=== PATIENT | male | born 1970 | race Hispanic/Latino ===

== ENCOUNTER 2018-02-24 16:57 | Inpatient (IN) | payer BC ==
[~2018-02-24] VITALS: Ht 165.1 cm; Wt 78.4 kg
[2018-02-24] MEDS ORDERED: MORPHINE SULFATE 2 MG/ML 1ML SYG ONE (19:29)
[2018-02-24] MEDS ORDERED: MORPHINE SULFATE 2 MG/ML 1ML SYG IVP PRN (20:00)
[2018-02-24 21:03] VITALS: BP 158/94
[2018-02-24] MEDS ORDERED: ENOXAPARIN SODIUM 40 MG/0.4 ML SYRINGE SQ SCH (21:30)
[2018-02-24] MEDS ORDERED: MORPHINE SULFATE 4 MG/1ML SYG ONE (22:54)
[2018-02-24 23:00] VITALS: BP 137/87
[2018-02-24] MEDS: ZOSYN 3.375GM+NS 50ML 50 ML IV SCH (23:01)
[2018-02-24] MEDS ORDERED: ESOM40CA54 PO (23:25)
[2018-02-24] MEDS ORDERED: OLME20TA10 PO (23:25)
[2018-02-25 03:00] VITALS: BP 137/82
[2018-02-25] MEDS: MORPHINE SULFATE 4 MG/1ML SYG IV PRN ×3 (04:23→17:18)
[2018-02-25] MEDS: ZOSYN 3.375GM+NS 50ML 50 ML IV SCH ×3 (05:28→20:56)
[2018-02-25 08:00] VITALS: BP 127/84
[2018-02-25] MEDS: LOSARTAN 100 MG TABLET PO SCH (09:30)
[2018-02-25] MEDS: PANTOPRAZOLE SODIUM 40 MG TABLET.DR PO SCH (09:31)
[2018-02-25 11:28] LABS: HEMATOCRIT 34.1 % (42-54); MEAN CORPUSCULAR HEMOGLOBIN 29.5 pg (27.0-33.0); MEAN CORPUSCULAR HGB CONC 33.5 g/dL (32.0-36.0); MEAN CORPUSCULAR VOLUME 88.2 fL (79-99); PLATELET COUNT (AUTO) 325 K/uL (130-400); RED BLOOD CELL COUNT(AUTO) 3.86 MIL/uL (4.50-6.20); RED CELL DISTRIBUTION WIDTH 13.8 % (11.0-15.5)
[2018-02-25 11:38] LABS: ALBUMIN 2.5 g/dL (3.5-5.0); MAGNESIUM 2.3 mg/dL (1.80-2.40); POTASSIUM 4.1 mmol/L (3.5-5.1); TOTAL PROTEIN, SERUM 8.1 g/dL (6.0-8.3)
[2018-02-25 12:00] VITALS: BP 126/80
[2018-02-25] MEDS ORDERED: LACTATED RINGERS 1000ML 1,000 ML IV SCH (13:15)
[2018-02-25 16:00] VITALS: BP 146/92
[2018-02-25 20:00] VITALS: BP 140/89
[2018-02-25] MEDS ORDERED: LACTULOSE 20 GM/30 ML UDCUP PO PRN (20:30)
[2018-02-26] VITALS (13 sets, daily range): BP systolic 112–156; BP diastolic 68–97
[2018-02-26 04:30] LABS: BASOPHILS % (AUTO) 0.4 % (0.0-5.0); EOSINOPHILS % (AUTO) 0.5 % (0.0-8.0); HEMATOCRIT 33.6 % (42-54); LYMPHOCYTES % (AUTO) 13.3 % (21.0-51.0); MEAN CORPUSCULAR HEMOGLOBIN 29.2 pg (27.0-33.0); MEAN CORPUSCULAR HGB CONC 33.5 g/dL (32.0-36.0); MEAN CORPUSCULAR VOLUME 87.1 fL (79-99); MONOCYTES % (AUTO) 10.3 % (3.0-13.0); NEUTROPHILS % (AUTO) 75.5 % (40.0-77.0); NUCLEATED RED BLOOD CELLS 0.1 % (0.0-0.19); PLATELET COUNT (AUTO) 322 K/uL (130-400); RED BLOOD CELL COUNT(AUTO) 3.86 MIL/uL (4.50-6.20); RED CELL DISTRIBUTION WIDTH 13.5 % (11.0-15.5); WHITE BLOOD COUNT (AUTO) 11.5 K/uL (4.8-10.8)
[2018-02-26 04:39] LABS: INR 0.97 (0.85-1.15); PARTIAL THROMBOPLASTIN TIME 29.4 SEC (26.3-35.5); PROTHROMBIN TIME 10.2 SEC (9.6-11.6)
[2018-02-26 04:50] LABS: ALBUMIN 2.4 g/dL (3.5-5.0); BILIRUBIN,TOTAL 0.7 mg/dL (0.2-1.0); CREATININE 0.9 mg/dL (0.5-1.5); TOTAL PROTEIN, SERUM 8.1 g/dL (6.0-8.3)
[2018-02-26] MEDS: ZOSYN 3.375GM+NS 50ML 50 ML IV SCH ×3 (05:20→20:36)
[2018-02-26] MEDS: MORPHINE SULFATE 4 MG/1ML SYG IV PRN ×3 (05:27→20:41)
[2018-02-26] MEDS: PANTOPRAZOLE SODIUM 40 MG TABLET.DR PO SCH (09:00)
[2018-02-26] MEDS: LOSARTAN 100 MG TABLET PO SCH (09:10)
[2018-02-26] MEDS: FAMOTIDINE/PF 20 MG/2 ML VIAL IV SCH (10:15)
[2018-02-26] MEDS ORDERED: FAMOTIDINE/PF 20 MG/2 ML VIAL IV ONE (10:15)
[2018-02-26] MEDS ORDERED: MIDAZOLAM HCL 1 MG/ML 2ML VIAL ONE (13:19)
[2018-02-26] MEDS ORDERED: FENTANYL CITRATE PF 50 MCG/1 ML 2ML VIAL ONE (13:19)
[2018-02-27] MEDS: MORPHINE SULFATE 4 MG/1ML SYG IV PRN (03:28)
[2018-02-27 03:35] VITALS: BP 132/85
[2018-02-27] MEDS: ZOSYN 3.375GM+NS 50ML 50 ML IV SCH ×2 (05:16→14:00)
[2018-02-27 06:37] LABS: HEMATOCRIT 33.9 % (42-54); MEAN CORPUSCULAR HEMOGLOBIN 29.2 pg (27.0-33.0); MEAN CORPUSCULAR HGB CONC 33.5 g/dL (32.0-36.0); PLATELET COUNT (AUTO) 343 K/uL (130-400); RED BLOOD CELL COUNT(AUTO) 3.89 MIL/uL (4.50-6.20); RED CELL DISTRIBUTION WIDTH 13.7 % (11.0-15.5); WHITE BLOOD COUNT (AUTO) 9.9 K/uL (4.8-10.8)
[2018-02-27 06:43] LABS: POTASSIUM 4.1 mmol/L (3.5-5.1)
[2018-02-27 07:00] VITALS: BP 155/98
[2018-02-27] MEDS ORDERED: ENOXAPARIN SODIUM 40 MG/0.4 ML SYRINGE SQ ONE (09:59)
[2018-02-27] MEDS: LOSARTAN 100 MG TABLET PO SCH (10:17)
[2018-02-27] MEDS: FAMOTIDINE/PF 20 MG/2 ML VIAL IV SCH (10:17)
[2018-02-27 11:00] VITALS: BP 126/83
[2018-02-27 15:00] VITALS: BP 128/93
[2018-02-27] MEDS ORDERED: TRAM50TA2 PO (15:40)
== END 2018-02-27 16:50 | disposition home or self-care (01) | DRG 436 ==
LOC: EDH 16:57 → EDHIP 19:00 → 3AH 20:27
PROVIDERS: ADMIT Family Medicine; ATTEND Family Medicine
PROC: 0FB13ZX Excision of Right Lobe Liver, Percutaneous Approach, Diagnostic (ICD-10-PCS; principal; 2018-02-26)
DX: C78.7 Secondary malignant neoplasm of liver and intrahepatic bile duct (principal); C18.9 Malignant neoplasm of colon, unspecified; E44.1 Mild protein-calorie malnutrition; K76.9 Liver disease, unspecified; R16.0 Hepatomegaly, not elsewhere classified; F10.10 Alcohol abuse, uncomplicated; I10 Essential (primary) hypertension; D72.829 Elevated white blood cell count, unspecified; D64.9 Anemia, unspecified; R74.8 Abnormal levels of other serum enzymes; Z80.3 Family history of malignant neoplasm of breast; Z68.28 Body mass index [BMI] 28.0-28.9, adult; Z80.9 Family history of malignant neoplasm, unspecified; Z82.49 Family history of ischemic heart disease and other diseases of the circulatory system
CPT/HCPCS: 36415; 47000; 71260; 80048; 80053; 82105; 82378; 83735; 85025; 85027; 85610; 85730; 87040; J1650; J2250; J2270; J2543; J3010; J3490; J7120

== ENCOUNTER 2018-08-31 01:14 | Emergency (ER) | payer BC ==
[~2018-08-31 01:14] MED LIST: ESOM40CA54 PO; HYDR-4457 PO; OLME20TA10 PO; ONDA8TAB8 PO
[2018-08-31] MEDS ORDERED: ASPIRIN 325 MG TABLET ONE (01:45)
[2018-08-31 01:58] LABS: BASOPHILS % (AUTO) 0.5 % (0.0-5.0); EOSINOPHILS % (AUTO) 1.4 % (0.0-8.0); HEMATOCRIT 39.8 % (42-54); LYMPHOCYTES % (AUTO) 27.2 % (21.0-51.0); MEAN CORPUSCULAR HEMOGLOBIN 29.5 pg (27.0-33.0); MEAN CORPUSCULAR HGB CONC 32.9 g/dL (32.0-36.0); MEAN CORPUSCULAR VOLUME 89.7 fL (79-99); MONOCYTES % (AUTO) 13.9 % (3.0-13.0); NUCLEATED RED BLOOD CELLS 0.1 % (0.0-0.19); PLATELET COUNT (AUTO) 117 K/uL (130-400); RED BLOOD CELL COUNT(AUTO) 4.44 MIL/uL (4.50-6.20); RED CELL DISTRIBUTION WIDTH 17.4 % (11.0-15.5); WHITE BLOOD COUNT (AUTO) 6.1 K/uL (4.8-10.8)
[2018-08-31 02:14] LABS: CREATININE 0.9 mg/dL (0.5-1.5); POTASSIUM 3.6 mmol/L (3.5-5.1)
[2018-08-31 02:19] LABS: ALBUMIN 3.6 g/dL (3.5-5.0); BILIRUBIN,TOTAL 0.6 mg/dL (0.2-1.0); TOTAL PROTEIN, SERUM 8.3 g/dL (6.0-8.3)
[2018-08-31 02:22] LABS: B-TYPE NATRIURETIC PEPTIDE 12 pg/mL (0-100)
[2018-08-31] MEDS ORDERED: LABETALOL 20 MG/4 ML DISP.SYRIN IV ONE (02:29)
[2018-08-31] MEDS ORDERED: SODIUM CHLORIDE 0.9% 50 ML IV ONE (02:31)
== END 2018-08-31 03:17 | disposition home or self-care (01) ==
LOC: EDH 01:14
DX: I10 Essential (primary) hypertension (principal); R07.89 Other chest pain; Z85.038 Personal history of other malignant neoplasm of large intestine; Z85.05 Personal history of malignant neoplasm of liver
CPT/HCPCS: 36415; 71045; 80053; 82550; 83880; 84484; 85025; 93005; 96374

== ENCOUNTER 2018-12-19 02:53 | Observation (INO) | payer BC ==
[~2018-12-19] VITALS: Ht 165.1 cm; Wt 88.9 kg
[2018-12-19] MEDS ORDERED: ONDANSETRON HCL 4 MG/2 ML VIAL ONE (03:42)
[2018-12-19] MEDS ORDERED: MORPHINE SULFATE 5 MG/ML VIAL ONE (03:43)
[2018-12-19] MEDS ORDERED: ACETAMINOPHEN EXTRA STRENGTH 500 MG TABLET ONE (03:44)
[2018-12-19 03:46] LABS: BASOPHILS % (AUTO) 0.2 % (0.0-5.0); EOSINOPHILS % (AUTO) 0.2 % (0.0-8.0); HEMATOCRIT 37.1 % (42-54); LYMPHOCYTES % (AUTO) 8.8 % (21.0-51.0); MEAN CORPUSCULAR HEMOGLOBIN 29.6 pg (27.0-33.0); MEAN CORPUSCULAR HGB CONC 33.2 g/dL (32.0-36.0); MEAN CORPUSCULAR VOLUME 89.4 fL (79-99); MONOCYTES % (AUTO) 5.5 % (3.0-13.0); NEUTROPHILS % (AUTO) 85.3 % (40.0-77.0); NUCLEATED RED BLOOD CELLS 0.1 % (0.0-0.19); PLATELET COUNT (AUTO) 139 K/uL (130-400); RED BLOOD CELL COUNT(AUTO) 4.15 MIL/uL (4.50-6.20); RED CELL DISTRIBUTION WIDTH 16.8 % (11.0-15.5); WHITE BLOOD COUNT (AUTO) 3.7 K/uL (4.8-10.8)
[2018-12-19 03:55] LABS: CARBON DIOXIDE 23 mmol/L (21-32); CHLORIDE 100 mmol/L (101-111); GLOMERULAR FILTR. RATE CALC 85 mL/min (>60); GLUCOSE,RANDOM 134 mg/dL (70-105); POTASSIUM 3.4 mmol/L (3.5-5.1); SODIUM SERUM 136 mmol/L (136-145); UREA NITROGEN, BLOOD 21 mg/dL (7-18)
[2018-12-19 04:03] LABS: INR 0.96 (0.85-1.15); PARTIAL THROMBOPLASTIN TIME 27.1 SEC (26.3-35.5); PROTHROMBIN TIME 10.1 SEC (9.6-11.6)
[2018-12-19 04:07] LABS: ALANINE AMINOTRANSFERASE 58 U/L (12-78); ALBUMIN 3.5 g/dL (3.5-5.0); ASPARTATE AMINOTRANSFERASE 43 U/L (10-37); BILIRUBIN,TOTAL 0.8 mg/dL (0.2-1.0); CREATINE KINASE, TOTAL 52 U/L (21-232); MYOGLOBIN 31 ng/mL (10-92); TOTAL PROTEIN, SERUM 8.2 g/dL (6.0-8.3); TROPONIN I < 0.04 ng/mL (0.00-0.06)
[2018-12-19] MEDS ORDERED: LEVOFLOXACIN 750 MG/D5W 150 ML 150 ML ONE (04:57)
[2018-12-19] MEDS ORDERED: POTASSIUM CHLORIDE 20 MEQ ERTAB PO ONE (06:10)
[2018-12-19] MEDS ORDERED: MAGNESIUM 2GM PREMIX 50ML 50 ML IV ONE (06:37)
--- NOTE | 2018-12-19 07:23 | NUR ---
ER ADMIT PATIENT RECEIVED FROM ER VIA WHEELCHAIR. HE IS AWAKE, ALERT AND ORIENTED X3. FAMILY IS PRESENT IN ROOM. ALL HAVE BEEN ORIENTED TO ROOM AND USE OF CALL LIGHT. NO C/O PAIN OR DISCOMFORT REPORTED. BED IS IN LOWEST POSITION AND LOCKED WITH PERSONAL ITEMS WITHIN REACH. IV TO THE LEFT FOREARM IS PATENT WITH NO REDNESS OR SWELLING NOTED TO SITE. WILL CONTINUE TO MONITOR.
[2018-12-19 07:30] VITALS: BP 141/61
[2018-12-19] MEDS ORDERED: ACET-2123 PO (07:46)
[2018-12-19] MEDS ORDERED: CAND32TA9 PO (07:46)
[2018-12-19] MEDS ORDERED: METO-408 PO (07:46)
[2018-12-19] MEDS ORDERED: CYCL10TA7 PO (07:46)
[2018-12-19] MEDS ORDERED: CELE-84 PO (07:46)
[2018-12-19] MEDS ORDERED: AMLO5TAB9 PO (07:46)
[2018-12-19] MEDS ORDERED: IBUP-2353 PO (07:46)
[2018-12-19] MEDS ORDERED: ONDANSETRON ODT 4 MG TAB PO PRN (08:00)
[2018-12-19] MEDS ORDERED: POTASSIUM CHLORIDE 20 MEQ ERTAB PO PRN (08:00)
[2018-12-19] MEDS ORDERED: CYCLOBENZAPRINE HCL 10 MG TABLET PO PRN (08:00)
[2018-12-19] MEDS ORDERED: IBUPROFEN 200 MG TAB PO PRN (08:00)
[2018-12-19] MEDS ORDERED: POTASSIUM CHLORIDE 20MEQ/100ML 100 ML IV PRN (08:00)
[2018-12-19] MEDS ORDERED: CELECOXIB 200 MG CAP PO PRN (08:00)
[2018-12-19] MEDS: METOPROLOL SUCCINATE 25 MG PO SCH ×2 (08:00→20:09)
[2018-12-19] MEDS ORDERED: POTASSIUM CHLORIDE 10% ELIXIR 20 MEQ/15 ML UDCUP PO PRN (08:00)
[2018-12-19] MEDS: LOSARTAN 100 MG TABLET PO SCH (08:00)
[2018-12-19] MEDS ORDERED: ACETAMINOPHEN EXTRA STRENGTH 500 MG TABLET PO PRN (08:00)
[2018-12-19] MEDS ORDERED: HYDROCODONE/ACETAMINOPHEN 5/325 MG TAB PO PRN (08:00)
[2018-12-19] MEDS ORDERED: LIDOCAINE HCL-MPF 1% 2ML VIAL IVP PRN (08:00)
[2018-12-19] MEDS: AMLODIPINE BESYLATE 5 MG TAB PO SCH (08:00)
[2018-12-19] MEDS: PANTOPRAZOLE SODIUM 40 MG TABLET.DR PO SCH (08:11)
[2018-12-19] MEDS: 1/2 NORMAL SALINE 1,000 ML IV SCH ×2 (08:11→20:08)
[2018-12-19] MEDS: ENOXAPARIN SODIUM 30 MG/0.3 ML SQ SCH (08:12)
[2018-12-19] MEDS ORDERED: ACETAMINOPHEN 325 MG TAB PO PRN (08:15)
[2018-12-19 11:00] VITALS: BP 110/79
--- NOTE | 2018-12-19 11:11 | NUR ---
DCP CM met with pt discussed dc plans. Pt is independent prior to admission, lives at home with spouse. Denies any equipments/services. Pt feels safe to go back home, still drives and works, spouse able to assist with transportation and needs as necessary. DC plan to home once stable. CM to cont to follow up. Addendum: 12/19/18 at 1112 by EMEKA MONTEZ LVN CM Amended: Links added.
[2018-12-19 16:00] VITALS: BP 126/78
[2018-12-19 19:35] VITALS: BP 123/84
[2018-12-19 23:53] VITALS: BP 116/75
[2018-12-20 04:17] VITALS: BP 124/79
[2018-12-20 07:00] VITALS: BP 126/80
[2018-12-20] MEDS: PANTOPRAZOLE SODIUM 40 MG TABLET.DR PO SCH (07:38)
--- NOTE | 2018-12-20 07:38 | NUR ---
DR. RONDA BOND IN TO SEE PATIENT. NEW ORDERS RECEIVED.
[2018-12-20] MEDS: LOSARTAN 100 MG TABLET PO SCH (08:03)
[2018-12-20] MEDS: AMLODIPINE BESYLATE 5 MG TAB PO SCH (08:03)
[2018-12-20] MEDS: ENOXAPARIN SODIUM 30 MG/0.3 ML SQ SCH (08:03)
[2018-12-20] MEDS: METOPROLOL SUCCINATE 25 MG PO SCH (08:03)
[2018-12-20 08:09] LABS: BASOPHILS % (AUTO) 0.2 % (0.0-5.0); EOSINOPHILS % (AUTO) 2.1 % (0.0-8.0); HEMATOCRIT 34.5 % (42-54); LYMPHOCYTES % (AUTO) 26.7 % (21.0-51.0); MEAN CORPUSCULAR HEMOGLOBIN 30.7 pg (27.0-33.0); MEAN CORPUSCULAR HGB CONC 33.9 g/dL (32.0-36.0); MEAN CORPUSCULAR VOLUME 90.6 fL (79-99); PLATELET COUNT (AUTO) 94 K/uL (130-400); RED CELL DISTRIBUTION WIDTH 16.7 % (11.0-15.5); WHITE BLOOD COUNT (AUTO) 2.6 K/uL (4.8-10.8)
[2018-12-20 08:33] LABS: CREATININE 0.9 mg/dL (0.5-1.5)
[2018-12-20 08:47] LABS: BAND NEUTROPHILS % (MANUAL) 2 % (0-2); EOSINOPHILS % (MANUAL) 3 % (1-6); LYMPHOCYTES % (MANUAL) 28 % (22-44); MAN.DIFF COMMENT-IMPRESSION MANUAL DIFFERENTIAL; MONOCYTES % (MANUAL) 8 % (2-9); SEGMENTED NEUTROPHILS % 59 % (40-70)
[2018-12-20 08:50] LABS: PLATELET MORPHOLOGY COMMENT SLIGHTLY DECREASED
[2018-12-20] MEDS ORDERED: LEVOFLOXACIN 500 MG/D5W 100 ML 100 ML IV SCH (09:00)
[2018-12-20 11:22] VITALS: BP 132/76
--- NOTE | 2018-12-20 15:25 | NUR ---
DISCHARGE INSTRUCTIONS DISCUSSED DISCHARGE INSTRUCTION WITH PT AND FAMILY, STATES HAS BOTH APPTS. SET FOR NEXT WEEK.
--- NOTE | 2018-12-20 15:30 | NUR ---
DISCHARGE PT DISCHARGED HOME, NO DISTRESS NOTED.
== END 2018-12-20 15:28 | disposition home or self-care (01) ==
LOC: EDH 02:53 → EDHIP 05:14 → 4AH 06:23
PROVIDERS: ADMIT Internal Medicine; ATTEND Internal Medicine
DX: R50.9 Fever, unspecified (principal); C18.9 Malignant neoplasm of colon, unspecified; C78.7 Secondary malignant neoplasm of liver and intrahepatic bile duct; D70.9 Neutropenia, unspecified; E86.0 Dehydration; I10 Essential (primary) hypertension; Z85.038 Personal history of other malignant neoplasm of large intestine; Z92.21 Personal history of antineoplastic chemotherapy
CPT/HCPCS: 36415 ×2; 71045; 80048; 80053; 82550; 83605 ×2; 83630; 83735; 83874; 84484; 85025 ×2; 85610; 85730; 87040 ×2; 87046; 87177; 87324; 93005; 96361 ×2; 96365; 96372; 99291; G0378 ×34; J1650; J1956 ×2; J2270; J2405; J3475

== ENCOUNTER 2019-01-29 17:52 | Emergency (ER) | payer BC ==
[~2019-01-29 17:52] MED LIST changes: +ACET-2123 PO; +AMLO5TAB9 PO; +CAND32TA9 PO; +CELE-84 PO; +CYCL10TA7 PO; +IBUP-2353 PO; +METO-408 PO; -OLME20TA10 PO
[2019-01-29] MEDS ORDERED: ACETAMINOPHEN 325 MG TAB ONE (18:11)
[2019-01-29] MEDS ORDERED: SODIUM CHLORIDE 0.9% 1000ML 1,000 ML IV ONE ×2 (18:11→20:38)
[2019-01-29 18:21] LABS: BASOPHILS % (AUTO) 0.3 % (0.0-5.0); EOSINOPHILS % (AUTO) 0.3 % (0.0-8.0); HEMATOCRIT 34.9 % (42-54); LYMPHOCYTES % (AUTO) 16.7 % (21.0-51.0); MEAN CORPUSCULAR HEMOGLOBIN 30.5 pg (27.0-33.0); MEAN CORPUSCULAR HGB CONC 33.7 g/dL (32.0-36.0); MEAN CORPUSCULAR VOLUME 90.4 fL (79-99); MONOCYTES % (AUTO) 9.3 % (3.0-13.0); NEUTROPHILS % (AUTO) 73.4 % (40.0-77.0); NUCLEATED RED BLOOD CELLS 0.2 % (0.0-0.19); PLATELET COUNT (AUTO) 177 K/uL (130-400); RED BLOOD CELL COUNT(AUTO) 3.87 MIL/uL (4.50-6.20); RED CELL DISTRIBUTION WIDTH 16.6 % (11.0-15.5); WHITE BLOOD COUNT (AUTO) 3.7 K/uL (4.8-10.8)
[2019-01-29 18:30] LABS: RAPID GROUP A STREP NEGATIVE (NEGATIVE)
[2019-01-29 18:34] LABS: INR 0.93 (0.85-1.15); PARTIAL THROMBOPLASTIN TIME 25.2 SEC (26.3-35.5); PROTHROMBIN TIME 9.8 SEC (9.6-11.6)
[2019-01-29 18:49] LABS: CARBON DIOXIDE 28 mmol/L (21-32); CHLORIDE 100 mmol/L (101-111); GLOMERULAR FILTR. RATE CALC 85 mL/min (>60); GLUCOSE,RANDOM 110 mg/dL (70-105); POTASSIUM 3.6 mmol/L (3.5-5.1); SODIUM SERUM 137 mmol/L (136-145); UREA NITROGEN, BLOOD 13 mg/dL (7-18)
[2019-01-29 19:05] LABS: ALANINE AMINOTRANSFERASE 68 U/L (12-78); ALBUMIN 3.6 g/dL (3.5-5.0); ASPARTATE AMINOTRANSFERASE 56 U/L (10-37); BILIRUBIN,TOTAL 0.7 mg/dL (0.2-1.0); CREATINE KINASE, TOTAL 66 U/L (21-232); MYOGLOBIN 25 ng/mL (10-92); TOTAL PROTEIN, SERUM 8.1 g/dL (6.0-8.3); TROPONIN I < 0.04 ng/mL (0.00-0.06)
[2019-01-29 19:43] LABS: APPEARANCE,URINE Clear (CLEAR); BILIRUBIN,URINE Negative (NEGATIVE); COLOR,URINE Yellow (YELLOW); GLUCOSE, URINE (UA) Negative (NEGATIVE); KETONES,URINE Negative (NEGATIVE); LEUKOCYTE ESTERASE ,URINE Negative (NEGATIVE); NITRATE,URINE Negative (NEGATIVE); OCCULT BLOOD,URINE Negative (NEGATIVE); PROTEIN,URINE Negative (NEGATIVE)
[2019-01-29] MEDS ORDERED: IOHEXOL-350 75 ML VIAL IV ONE (19:51)
== END 2019-01-29 21:28 | disposition home or self-care (01) ==
LOC: EDH 17:52
DX: R50.9 Fever, unspecified (principal); R51 Headache; M79.10 Myalgia, unspecified site; C78.7 Secondary malignant neoplasm of liver and intrahepatic bile duct; I10 Essential (primary) hypertension
CPT/HCPCS: 36415; 71045; 74018; 74177; 80053; 81003; 82550; 83605; 83874; 84484; 85025; 85610; 85730; 87040 ×2; 87088; 87804 ×2; 87880; 93005; 99285; J7030 ×2; Q9967